=== PATIENT | female | born 1950 | race American Indian/Alaskan Native ===

== ENCOUNTER 2018-05-14 11:00 | Emergency (ER) | payer MEDICARE ==
[2018-05-14 11:58] VITALS: BP 177/69
[2018-05-14 12:36] LABS: Bacteria,Urine 2+ /HPF (Negative); Bilirubin,Urine NEG (Negative); Blood,Urine NEG (Negative); Calcium Oxalate Crystals,Urine 1+; Color,Urine Yellow (Yellow); Mucus,Urine FEW /HPF; Protein,Urine <15 mg/dL mg/dL (Negative); Urobilinogen,Urine < 2.0 mg/dL (<2.0)
== END 2018-05-14 11:57 | disposition left against medical advice (07) ==
LOC: ED 11:00
DX: R10.9 Unspecified abdominal pain (principal); Z53.21 Procedure and treatment not carried out due to patient leaving prior to being seen by health care provider
CPT/HCPCS: 81001

== ENCOUNTER 2019-05-01 11:12 | Emergency (ER) | payer MEDICARE ==
--- NOTE | 2019-05-01 11:28 | Event Note ---
ED Screening Note Date of service: 05/01/19 Time: 11:23 ED Screening Note: 69 y o female presents to ED cc of right sided lower back pain that worsened today after she accidentally slipped and fell. This initial assessment/diagnostic orders/clinical plan/treatment(s) is/are subject to change based on patients health status, clinical progression and re- assessment by fellow clinical providers in the ED. Further treatment and workup at subsequent clinical providers discretion. Patient/guardian urged not to elope from the ED as their condition may be serious if not clinically assessed and managed. Initial orders include: CT lumbar
[2019-05-01] MEDS ORDERED: ZOFRAN IV ONE (13:48)
[2019-05-01] MEDS ORDERED: MORPHINE IV ONE (13:48)
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
[2019-05-01 14:14] LABS: Basophils % (Auto) 0.4 % (0.0-1.8); Eosinophils # (Auto) 0.1 K/mm3 (0.0-0.4); Eosinophils % (Auto) 0.8 % (0.0-4.3); Hematocrit 37.3 % (30.3-42.9); Hemoglobin 12.6 gm/dl (10.1-14.3); Lymphocytes % (Auto) 33.4 % (13.4-35.0); Mean Corpuscular HGB Conc 34 % (30-34); Mean Corpuscular Volume 91 fl (79-97); Monocytes # (Auto) 0.4 K/mm3 (0.0-0.8); Monocytes % (Auto) 7.4 % (0.0-7.3); Platelet Count 231 K/mm3 (140-440); Red Blood Count 4.08 M/mm3 (3.65-5.03); Red Cell Distribution Width 13.9 % (13.2-15.2)
[2019-05-01 14:40] LABS: Alanine Aminotransferase 14 units/L (7-56); Albumin 3.9 g/dL (3.9-5); BUN/Creatinine Ratio 17; Blood Urea Nitrogen 12 mg/dL (7-17); Calcium 10.3 mg/dL (8.4-10.2); Hemolysis Index 5
--- NOTE | 2019-05-01 19:01 | Cat Scan Report ---
CT LUMBAR SPINE WITHOUT CONTRAST HISTORY: Back pain after colonoscopy COMPARISON: None TECHNIQUE: CT images of the lumbar spine were obtained without contrast. Sagittal and coronal reform ats were post-processed. All CT scans at this location are performed using CT dose reduction for ALAR A by means of automated exposure control. CONTRAST: None. FINDINGS: Alignment: Normal. No traumatic subluxation. Vertebrae:No significant abnormality. No fracture. Disc Spaces: Loss of disc height is seen at T11-T12 disc level. Anterior bridging osteophyte is seen. Bony canal and neuroforamina are normal. T12-L1 disc space is normal. Bulging disc is seen at L1-L2 disc level. At L2-L3 disc level, minimal retrolisthesis seen. Broad-based bulging disc is seen. At L3-L4 disc level, broad-based disc protrusion is seen extending bilaterally. Ligamentous hypertrop hy is seen bilaterally. Mild to moderate thecal sac stenosis seen. Disc space is narrowed at the L4-L5 disc level on the right side. Broad-based disc protrusion is seen without lateralization. Mild to moderate thecal sac stenosis seen. At L5-S1 disc level, bridging osteophyte is seen on the left side. Left neural foramen is narrowed. Facet Joints:No significant abnormality. Additional Findings: None IMPRESSION: I do not see vertebral compression fracture Spondylotic changes at all lumbar disc levels. Signer Name: Enedelia Barksdale MD Signed: 05/01/2019 6:57 PM Workstation Name: [id number]
--- NOTE | 2019-05-01 19:08 | Cat Scan Report ---
CT abdomen pelvis w con INDICATION / CLINICAL INFORMATION: abdominal and back pain s/p colonoscopy. TECHNIQUE: All CT scans at this location are performed using CT dose reduction for ALARA by means of automated e xposure control. COMPARISON: 06/15/2018 FINDINGS: No acute disease in either lower lung. ABDOMEN: Cholelithiasis with no biliary ductal dilatation or pericholecystic fluid collection. The liver, spleen, pancreas and kidneys are normal. No adrenal masses or retroperitoneal adenopathy. The appearance of the small bowel is normal. Inferior vena caval filter is noted. Pelvis: Diverticulosis involving the descending and sigmoid colon. The appendix is normal. No evidence of abnormal fluid collection in the pelvis. No evidence of pneumoperitoneum. Hardware is present in the right hip. No other remarkable skeletal findings. IMPRESSION: 1. No pneumoperitoneum or acute finding. 2. Cholelithiasis. 3. Left-sided colonic diverticulosis. Signer Name: González Moreau MD Signed: 05/01/2019 7:04 PM Workstation Name: [id number]
[2019-05-01 20:41] VITALS: BP 140/89
== END 2019-05-01 20:41 | disposition home or self-care (01) ==
LOC: ED 11:12
DX: K57.90 Diverticulosis of intestine, part unspecified, without perforation or abscess without bleeding (principal); K80.80 Other cholelithiasis without obstruction; I10 Essential (primary) hypertension; E11.9 Type 2 diabetes mellitus without complications; M19.90 Unspecified osteoarthritis, unspecified site; Z88.0 Allergy status to penicillin; Z79.899 Other long term (current) drug therapy
CPT/HCPCS: 36415; 72131; 74177; 80053; 83690; 85025; 96374; 96375; 99284; J2270; J2405; Q9967

== ENCOUNTER 2019-06-28 12:01 | Emergency (ER) | payer OTHER, MEDICARE ==
[2019-06-28 12:45] VITALS: BP 172/62
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
== END 2019-06-28 16:35 | disposition home or self-care (01) ==
LOC: ED 12:01
DX: S16.1XXA Strain of muscle, fascia and tendon at neck level, initial encounter (principal); M25.571 Pain in right ankle and joints of right foot; M25.572 Pain in left ankle and joints of left foot; I10 Essential (primary) hypertension; E11.9 Type 2 diabetes mellitus without complications; M19.90 Unspecified osteoarthritis, unspecified site; V49.49XA Driver injured in collision with other motor vehicles in traffic accident, initial encounter; Y93.89 Activity, other specified; Y92.89 Other specified places as the place of occurrence of the external cause; Y99.8 Other external cause status
CPT/HCPCS: 72040

== ENCOUNTER 2020-03-06 21:02 | Emergency (ER) | payer MEDICARE ==
--- NOTE | 2020-03-06 23:03 | Cat Scan Report ---
CT HEAD/BRAIN WO CON INDICATION / CLINICAL INFORMATION: Headache after head injury one week ago. TECHNIQUE: All CT scans at this location are performed using CT dose reduction for ALARA by means of automated e xposure control. COMPARISON: None available. FINDINGS: The ventricular system is normal in size and configuration. No focal lesion or mass effect is seen. T here is no evidence of intracranial hemorrhage or major vessel occlusion. The calvarium is intact. The visualized paranasal sinuses and mastoid air cells are clear. IMPRESSION: No acute abnormality is identified. Signer Name: Kristian Santos MD Signed: 03/06/2020 10:59 PM Workstation Name: [id number]
[2020-03-07 01:14] VITALS: BP 149/64
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
== END 2020-03-07 02:26 | disposition home or self-care (01) ==
LOC: ED 21:02
DX: S09.90XA Unspecified injury of head, initial encounter (principal); I10 Essential (primary) hypertension; E11.9 Type 2 diabetes mellitus without complications; M19.91 Primary osteoarthritis, unspecified site; Z98.890 Other specified postprocedural states; Z79.1 Long term (current) use of non-steroidal anti-inflammatories (NSAID); Z79.899 Other long term (current) drug therapy; Z88.0 Allergy status to penicillin; W19.XXXA Unspecified fall, initial encounter; Y93.89 Activity, other specified; Y92.89 Other specified places as the place of occurrence of the external cause; Y99.8 Other external cause status
CPT/HCPCS: 70450